=== PATIENT | female | born 1955 | race Caucasian/White ===

== ENCOUNTER → 2022-08-09 | Outpatient (CLI) | payer OTHER | END | disposition home or self-care (01) | LOC: LAB SHORT 17:27 → LAB 17:27 | DX: R10.9 Unspecified abdominal pain (principal) | CPT/HCPCS: 87086 ==

== ENCOUNTER 2022-12-07 09:29 | Inpatient (IN) | payer OTHER ==
[~2022-12-07] VITALS: Ht 167.6 cm; Wt 81.2 kg
[2022-12-07 10:21] LABS: BASOPHILS ABSOLUTE AUTO 0.04 K/mm3 (0.00-0.23); BASOPHILS PERCENT AUTO 0 % (0-2); EOSINOPHILS ABSOLUTE AUTO 0.27 K/mm3 (0.00-0.68); EOSINOPHILS PERCENT AUTO 3 % (0-6); Hematocrit 43.3 % (33.0-51.0); Hemoglobin 14.5 g/dL (11.5-16.0); IMMATURE GRAN ABSOLUTE AUTO 0.02 K/mm3 (0.00-0.10); IMMATURE GRAN PERCENT AUTO 0 % (0-1); LYMPHOCYTES ABSOLUTE AUTO 2.32 K/mm3 (0.84-5.20); LYMPHOCYTES PERCENT AUTO 26 % (21-46); MONOCYTES ABSOLUTE AUTO 0.53 K/mm3 (0.16-1.47); MONOCYTES PERCENT AUTO 6 % (4-13); Mean Corpuscular HGB 29.1 pg (26.0-34.0); Mean Corpuscular HGB Conc 33.5 g/dL (31.5-36.5); Mean Corpuscular Volume 87 fL (80-100); Mean Platelet Volume 10.8 fL (9.1-12.4); NEUTROPHILS PERCENT AUTO 65 % (41-73); Platelet Count 295 K/mm3 (150-400); RDW Coefficient Variation 13.6 % (11.7-14.2); RDW Standard Deviation 43.5 fL (35.1-46.3); Red Blood Cell Count 4.99 M/mm3 (3.80-5.20); White Blood Cell Count 8.98 K/mm3 (4.00-11.30)
[2022-12-07 10:48] LABS: Albumin, Blood 3.9 g/dL (3.4-5.0); Albumin/Globulin Ratio 1.2 (0.8-1.8); Bilirubin, Total 0.8 mg/dL (0.1-1.0); Bun/Creatinine Ratio 17.2 (12.0-20.0); Calcium, Blood 9.1 mg/dL (8.5-10.1); Creatinine, Blood 0.7 mg/dL (0.40-1.00); Globulin, Blood 3.3 g/dL (2.2-4.0); Potassium, Blood 4.2 mmol/L (3.5-5.5); Total Protein, Blood 7.2 g/dL (6.4-8.2)
--- NOTE | 2022-12-07 16:22 | NUR ---
PT ARRIVED TO THE ROOM AT APPROXIMATELY 1600. PT ALERT AND ORIENTED SHE DENIES PAIN. PT TOLERATING CLEAR LIQUIDS. CALL LIGHT WITHIN REACH. PT WAS ABLE TO STAND AND TRANSFER FROM [facility] TO BED.
[2022-12-07] MEDS ORDERED: ESOM20 PO (16:34)
[2022-12-07] MEDS ORDERED: HYDACE10B PO (16:35)
--- NOTE | 2022-12-07 18:21 | NUR ---
SUMMARY ASSUMED CARE OF PT, EATING REGULAR DINNER, ATE A FEW BITES OF DINNER, DENIES ANY NAUSEA, AMBULATED DOWN THE BARRAZA, VOIDED WITHOUT DIFFICULTY, RATES INCISIONAL PAIN AT 01/10, 1 NORCO GIVEN, DC INSTRUCTIONS GIVEN, VERBALIZED UNDERSTANDING, PT WAITING FOR RIDE HOME.
== END 2022-12-07 19:00 | disposition home or self-care (01) | DRG 419 ==
LOC: ER 09:29 → SURS 12:33
PROVIDERS: Emergency Medicine; ADMIT Surgery
PROC: BF532Z0 Other Imaging of Gallbladder and Bile Ducts using Fluorescing Agent, Intraoperative (ICD-10-PCS; 2022-12-07)
PROC: 0FT44ZZ Resection of Gallbladder, Percutaneous Endoscopic Approach (ICD-10-PCS; principal; 2022-12-07 12:30)
DX: K80.12 Calculus of gallbladder with acute and chronic cholecystitis without obstruction (principal); Z90.49 Acquired absence of other specified parts of digestive tract; Z98.51 Tubal ligation status
CPT/HCPCS: 36415; 76705; 80053; 83690; 85025; 88304; 96361; 96374; 99285-25; A9270; C1729; J0690; J1100; J1885; J2250; J2370; J2405; J2704; J2795; J3010; J7030; J7120